=== PATIENT | female | born 1995 | race Caucasian/White ===

== ENCOUNTER 2017-01-09 14:39 | Emergency (ER) | payer BC ==
[~2017-01-09] VITALS: Ht 162.6 cm; Wt 75.0 kg
[2017-01-09] MEDS ORDERED: KEFLEX500 M1 PO (15:33)
[2017-01-09 15:36] VITALS: BP 123/83
== END 2017-01-09 15:44 | disposition home or self-care (01) | DRG 605 ==
LOC: ED 14:39
PROC: 0HQMXZZ Repair Right Foot Skin, External Approach (ICD-10-PCS; principal; 2017-01-09)
DX: S91.011A Laceration without foreign body, right ankle, initial encounter (principal); W45.8XXA Other foreign body or object entering through skin, initial encounter; W22.8XXA Striking against or struck by other objects, initial encounter; Y92.008 Other place in unspecified non-institutional (private) residence as the place of occurrence of the external cause